=== PATIENT | female | born 1970 | race Caucasian/White ===

== ENCOUNTER 2024-02-18 19:46 | Emergency (ER) | payer BC, SELFPAY ==
[2024-02-18 19:47] VITALS: BP 135/78; PULSE 85; RESP 20; TEMP 36.9; O2SAT 98; BMI 22.2
--- NOTE | 2024-02-18 20:18 | ED_ITS ---
<Statement entered by David Meyres MD - 02/18/24 23:43> I was consulted by the JAYLEEN, and we discussed the complexity of the problems being addressed. I approved the treatment and management plan for this patient's care in the emergency department, thus performing a substantive portion of the medical decision making. David Meyers MD Discharge Plan Disposition Patient Disposition: Eloped Chief Complaint: Extremity Problem,Nontraumatic Referrals Follow up/Referrals: Provider,Referral, [Primary Care Provider] - See instructions Clinical Impressions Clinical Impression: Eloped from emergency department Print Language Print Language: [place] Discharge ED Provider: David Meyers General Adult HPI General Chief complaint: Extremity Problem,Nontraumatic Stated complaint: right calf pain Time Seen by Provider: 02/18/24 20:17 History of Present Illness HPI narrative: Patient presents for evaluation of right calf pain. Patient states that she had right calf pain that started last evening before bed and had difficulty sleeping due to the pain. She reports it similar to a charley horse but without actual cramping. Patient has had no recent travel denies trauma shortness of breath fever chills hemoptysis hematochezia melena nausea vomit diarrhea. [facility] Disclaimer: The information contained in this section may have been updated after the p atient was seen, as this information can be updated by other users. Social History Smoking Status: Current every day smoker alcohol intake: never current occupational status: disabled Travel in the last 8 weeks: None ROS Obtained: Yes Systems reviewed as appropriate & no additional complaints except as documented Physical Exam General General appearance: alert and in no apparent distress Respiratory Respiratory exam: Present normal lung sounds bilaterally Cardiovascular Cardiovascular exam: Present regular rate Neurological Exam Neurological exam: Present alert, oriented X3 and CN II-XII intact Medical Decision Making Medical Records Medical records reviewed: Yes I reviewed the patient's medical records. Raj Inquiry Pt receiving controlled substance: No Vital Signs: 02/18/24 19:47 02/18/24 20:46 Temperature 98.4 F 98.4 F Temperature Source Oral Oral Pulse Rate 80 Pulse Rate [Right] 85 Respiratory Rate 20 18 Blood Pressure 135/78 Blood Pressure [Right Arm] 135/78 Blood Pressure Mean [Right Arm] 97 Blood Pressure Source Automatic Cuff Blood Pressure Source [Right Arm] Automatic Cuff 02 Sat by Pulse Oximetry 98 Oxygen Delivery Method Room Air Room Air Lab Data Lab results reviewed: Yes I reviewed the patient's lab results. Orders (Tests/Meds): ORDERS Category Date Time Status POCUS Point of Care (ER Only) Stat Exams 02/18/24 20:18 Completed Medical Decision Narrative: In summary patient is a 53-year-old female who presents to the emergency department for evaluation of right calf pain. Patient is dynamically stable upon arrival, afebrile. Physical exam is remarkable for tenderness to palpation along the posterior calf however the calf is soft and there is no redness edema induration palpable cords increase or decrease in pain with any motion.. Dif ferential diagnosis includes also spasm versus possible DVT versus electrolyte abnormality etc. Initial workup will be conducted with hematologic labs POCUS. Initial interventions include Toradol and ibuprofen. Initial workup was ordered however patient eloped prior to completing any further investigation. Critical Care Critical Care Time Critical Care Time: No
--- NOTE | 2024-02-18 20:45 | PC.NURSE ---
Registration called back to state pt walked out of her room and left lobby. [place] PA-C notified of this and marked down pt eloped
[2024-02-18 20:46] VITALS: BP 135/78; PULSE 80; RESP 18; TEMP 36.9; O2SAT 98
== END 2024-02-18 20:49 | disposition left against medical advice (07) ==
PROVIDERS: Emergency Provider Emergency Medicine
DX: Z53.21 Procedure and treatment not carried out due to patient leaving prior to being seen by health care provider (principal)
CPT/HCPCS: 99281